=== PATIENT | female | born 1960 | race Caucasian/White ===

== ENCOUNTER → 2016-06-03 | Outpatient (CLI) | payer OTHER ==
--- NOTE | 2016-06-03 16:40 | KCIC ---
PROCEDURE MR of the left wrist and MR of the left hand HISTORY Swelling and tenderness. 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 TECHNIQUE Standard multiplanar sequences are obtained separately through the wrist and through the hand. COMPARISON None FINDINGS Left wrist Surface markers located just anterior to the extensor tendons indicating an area of swelling. There is a fusiform soft tissue mass which may represent massive enlargement of median nerve. At the level of the radiocarpal joint, this measures 2.7 centimeters wide 1.7 cm AP. This occurs over a longitudinal length of about 8 centimeters. There is some interposed mild fatty signal particularly at the proximal and distal margins. 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 Note that this lesion can be associated with macrodactyly. A 2nd skin markers located posterior to the extensor carpi ulnaris tendon. The tendon is intact, but is subluxed medially at the level of the ulnar styloid. There is some motion degradation on the exam. The other extensor compartments appear intact. Flexor tendons appear intact. The triangular fibrocartilage, scapholunate ligament and lunotriquetral ligament demonstrate no evidence of acute tear. No significant joint effusion. No acute soft tissue edema or fluid collection. No bone lesion or acute fracture. There is evidence of primary osteoarthritis at the carpal joints, greatest at the triscaphe, and also severe at the 1st carpometacarpal joint. Note is made of ulnar minus. 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 Flexor and extensor tendons are intact. No significant joint effusion. No abnormal soft tissue fluid collection or edema. No acute fracture or aggressive bone destruction. Mild degenerative changes are noted about the hand, particularly at the 2nd and 3rd MCP joints IMPRESSION 1. 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 Note these can be associated with macrodactyly. 2. 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 3. Primary osteoarthritis. 4. Medial subluxation of the extensor carpi ulnaris tendon. Electronically signed by: Juan José Bennett MD (Jun 03, 2016 16:39:09)
== END | disposition home or self-care (01) ==
LOC: KCIC MRI 13:44
PROVIDERS: ATTEND Internal Medicine
DX: M79.642 Pain in left hand (principal); M25.532 Pain in left wrist; M19.032 Primary osteoarthritis, left wrist
CPT/HCPCS: 73218; 73221

== ENCOUNTER 2016-09-18 16:57 | Emergency (ER) | payer OTHER ==
[~2016-09-18] VITALS: Ht 172.7 cm; Wt 83.9 kg
[2016-09-18 17:20] VITALS: BP 128/79
[2016-09-18] MEDS ORDERED: MORPHINE SULFATE 10 MG/ML VIAL. IV ONE (18:00)
[2016-09-18] MEDS ORDERED: ONDANSETRON PF 4 MG/2 ML VIAL. IV ONE (18:00)
[2016-09-18] MEDS ORDERED: FAMOTIDINE 20 MG/2 ML VIAL IVP ONE (18:00)
[2016-09-18] MEDS ORDERED: DICYCLOMINE HCL 10 MG CAPSULE PO ONE (18:00)
[2016-09-18] MEDS ORDERED: IV NORMAL SALINE 1000ML BAG 1,000 ML IV ONE (18:00)
[2016-09-18 18:02] LABS: BILIRUBIN,URINE NEGATIVE (NEG); GLUCOSE,URINE NEGATIVE (NEG); NITRITE,URINE NEGATIVE (NEG); PROTEIN,URINE NEGATIVE (NEG-TRACE); UROBILINOGEN,URINE 0.2 mg/dL (0.2 mg/dL)
--- NOTE | 2016-09-18 18:11 | PHYS DOC ---
Past Medical History Past Medical History: Arthritis, IBS, Other Additional Past Medical Histor: L arm- congenital deformity, "equilibrium issues" , IBS, scoliosis Past Surgical History: Hysterectomy Additional Past Surgical Histo: L hand surgery Alcohol Use: None Drug Use: None Adult General Chief Complaint Chief Complaint: DIARRHEA HPI HPI Patient is a 55 year old female with history of irritable bowel syndrome who presents today with diarrhea and generalized abdominal pain that began today at 10 AM. Patient denies any fever. She is complaining of chills. Patient denies any vomiting. Denies any bloody stools. Review of Systems Review of Systems Constitutional:see HPI Eyes: Denies change in visual acuity, redness, or eye pain [] HENT: Denies nasal congestion or sore throat [] Respiratory: Denies cough or shortness of breath [] Cardiovascular: No additional information not addressed in HPI [] GI: abdominal pain, and diarrhea [] : Denies dysuria or hematuria [] Musculoskeletal: Denies back pain or joint pain [] Integument: Denies rash or skin lesions [] Neurologic: Denies headache, focal weakness or sensory changes [] Endocrine: Denies polyuria or polydipsia [] Current Medications Current Medications Current Medications Medications (Trade) Dose Ordered Sig/Jeanna Start Time Stop Time Status Last Admin Dose Admin Dicyclomine HCl (Bentyl) 20 mg 1X ONCE 09/18/16 18:00 09/18/16 18:01 DC Famotidine (Pepcid) 20 mg 1X ONCE 09/18/16 18:00 09/18/16 18:01 DC 09/18/16 18:12 20 MG Info (Do NOT chart on this entry -- for MONITORING) 1 each PRN DAILY PRN 09/18/16 19:15 09/20/16 19:14 Iohexol (Omnipaque 300 Mg/ml) 75 ml 1X ONCE 09/18/16 19:30 09/18/16 19:31 DC 09/18/16 19:22 75 ML Morphine Sulfate 5 mg 1X ONCE 09/18/16 18:00 09/18/16 18:01 DC 09/18/16 18:14 5 MG Ondansetron HCl (Zofran) 4 mg 1X ONCE 09/18/16 18:00 09/18/16 18:01 DC 09/18/16 18:13 4 MG Sodium Chloride (Iv Sodium Chloride 0.9% 1000ml Bag) 1,000 ml @ 1,000 mls/hr 1X ONCE 09/18/16 18:00 09/18/16 18:59 DC 09/18/16 18:14 1,000 MLS/HR Allergies Allergies Allergies Coded Allergies Type Severity Reaction Last Updated Verified Penicillins Allergy Severe 09/18/16 Yes Quinolones Allergy Severe 09/18/16 Yes ampicillin Allergy Severe 09/18/16 Yes erythromycin base Allergy Severe 09/18/16 Yes levofloxacin Allergy Severe 09/18/16 Yes Physical Exam Physical Exam Constitutional: Well developed, well nourished, no acute distress, non-toxic appearance. [] HENT: Normocephalic, atraumatic, bilateral external ears normal, oropharynx moist, no oral exudates, nose normal. [] Eyes: PERRLA, EOMI, conjunctiva normal, no discharge. [] Neck: Normal range of motion, no tenderness, supple, no stridor. [] Cardiovascular:Heart rate regular rhythm, no murmur [] Lungs & Thorax: Bilateral breath sounds clear to auscultation [] Abdomen: Rounded abdomen. Bowel sounds normal, soft, diffuse tenderness throughout the abdomen, no masses, no pulsatile masses. [] Skin: Warm, dry, no erythema, no rash. [] Back: No tenderness, no CVA tenderness. [] Extremities: No tenderness, no cyanosis, no clubbing, ROM intact, no edema. [] Neurologic: Alert and oriented X 3, normal motor function, normal sensory function, no focal deficits noted. [] Psychologic: Affect normal, judgement normal, mood normal. [] Current Patient Data Vital Signs Vital Signs Date Time Temp Pulse Resp B/P Pulse Ox O2 Delivery O2 Flow Rate FiO2 09/18/16 18:14 Room Air 09/18/16 17:20 98.1 76 22 128/79 97 98.1 Lab Values Laboratory Tests Test 09/18/16 17:55 09/18/16 18:05 Urine Collection Type Unknown Urine Color Yellow Urine Clarity Clear Urine pH 5.0 Urine Specific [place] 1.025 Urine Protein Negativemg/dL (NEG-TRACE) Urine Glucose (UA) Negativemg/dL (NEG) Urine Ketones (Stick) 15mg/dL (NEG) Urine Blood Trace (NEG) Urine Nitrite Negative (NEG) Urine Bilirubin Negative (NEG) Urine Urobilinogen Dipstick 0.2mg/dL (0.2 mg/dL) Urine Leukocyte Esterase Small (NEG) Urine RBC Rare/HPF (0-2) Urine WBC 1-4/HPF (0-4) Urine Squamous Epithelial Cells Many/LPF Urine Bacteria Few/HPF (0-FEW) Urine Mucus Marked/LPF White Blood Count 12.6x10^3/uL (4.0-11.0) H Red Blood Count 5.32x10^6/uL (3.50-5.40) Hemoglobin 14.3g/dL (12.0-15.5) Hematocrit 42.7% (36.0-47.0) Mean Corpuscular Volume 80fL (79-100) Mean Corpuscular Hemoglobin 27pg (25-35) Mean Corpuscular Hemoglobin Concent 34g/dL (31-37) Red Cell Distribution Width 13.9% (11.5-14.5) Platelet Count 222x10^3/uL (140-400) Neutrophils (%) (Auto) 95% (31-73) H Lymphocytes (%) (Auto) 3% (24-48) L Monocytes (%) (Auto) 2% (0-9) Eosinophils (%) (Auto) 0% (0-3) Basophils (%) (Auto) 0% (0-3) Neutrophils # (Auto) 11.9x10^3uL (1.8-7.7) H Lymphocytes # (Auto) 0.4x10^3/uL (1.0-4.8) L Monocytes # (Auto) 0.3x10^3/uL (0.0-1.1) Eosinophils # (Auto) 0.0x10^3/uL (0.0-0.7) Basophils # (Auto) 0.0x10^3/uL (0.0-0.2) Segmented Neutrophils % 85% (35-66) H Band Neutrophils % 8% (0-9) Lymphocytes % 6% (24-48) L Monocytes % 1% (0-10) Platelet Estimate Adequate (ADEQUATE) Sodium Level 139mmol/L (136-145) Potassium Level 3.3mmol/L (3.5-5.1) L Chloride Level 102mmol/L (98-107) Carbon Dioxide Level 25mmol/L (21-32) Anion Gap 12 (6-14) Blood Urea Nitrogen 16mg/dL (7-20) Creatinine 0.9mg/dL (0.6-1.0) Estimated GFR (Cockcroft-Gault) 65.2 BUN/Creatinine Ratio 18 (6-20) Glucose Level 108mg/dL (70-99) H Calcium Level 9.1mg/dL (8.5-10.1) Total Bilirubin 0.5mg/dL (0.2-1.0) Aspartate Amino Transferase (AST) 17U/L (15-37) Alanine Aminotransferase (ALT) 24U/L (14-59) Alkaline Phosphatase 109U/L (46-116) Total Protein 7.6g/dL (6.4-8.2) Albumin 4.1g/dL (3.4-5.0) Albumin/Globulin Ratio 1.2 (1.0-1.7) Lipase 106U/L (73-393) Laboratory Tests 09/18/16 18:05 Laboratory Tests 09/18/16 18:05 EKG EKG [] Radiology/Procedures Radiology/Procedures []PROCEDURE: CT ABD PELV W/ IV CONTRST ONLY Examination: CT of the abdomen pelvis with IV contrast. HISTORY Diarrhea, abdominal pain. COMPARISON None available. TECHNIQUE Axial CT images of the abdomen and pelvis was performed with IV contrast. Coronal and sagittal reformats were performed. Exposure: One or more of the following dose reduction technique were utilized for this examination: 1. Automated exposure control. 2.Adjustment of MA and /or KV according to patient size. 3. Use of iterative reconstruction technique. FINDINGS Mild right lung base airspace opacity likely atelectasis or infiltrate. No evidence of free air identified in the abdomen. The visualized liver demonstrates tiny 3 millimeter hypodensity in the left lobe of the liver and in the right lobe of the liver are too small to characterize probably cysts. Mildly distended gallbladder. The visualized spleen, adrenals grossly appears unremarkable. The bilateral kidneys enhance symmetrically. The visualized pancreas grossly appears unremarkable. The small bowel is nondilated. The appendix is normal. Fluid is identified in the lumen of the colon throughout with some mild enhancement of the colon. Urinary bladder is minimally distended. Mild aortic atherosclerosis. Mild degenerative changes thoracolumbar spine exaggerated lumbar lordosis lumbar levoscoliosis. IMPRESSION - Small amount of fluid identified throughout the colon with minimal enhancement likely secondary to diarrhea or mild colitis. - Subcentimeter cystic structures identified in the liver are too small to characterize probably cysts. - Minimal right lung base airspace opacity likely atelectasis or infiltrate. Electronically signed by: Andrea Jeff (Sep 18, 2016 19:36:22) DICTATED and SIGNED BY: ANDREA JEFF MD DATE: 09/18/161935 CC: JERAMY RILEY APRN; NON,STAFF; UNKNOWN PCP NAME ~ Course & Med Decision Making Course & Med Decision Making Pertinent Labs and Imaging studies reviewed. (See chart for details) Patient is in the ED with generalized abdominal pain and diarrhea that began today. She has history of IBS. CBC with a WBC of 12.6, CMP with potassium of 3.3 , urine analysis appears contaminated. CT of the abdomen and pelvic was noted for colitis. Patient was given 1 L of IV fluid Zofran and famotidine and morphine in the ED. She has very good relief of her pain. She has not had any vomiting or diarrhea in the ED. She is allergic to multiple antibiotics Including quinolones, penicillins, erythromycin, she states she can not take any antibiotics that ends in mycin due to throat swelling She was discharged with Flagyl, Bactrim. F/u with PCP in course of the week Ishmael Disclaimer Ishmael Disclaimer This electronic medical record was generated, in whole or in part, using a voice recognition dictation system. Departure Departure Impression: Primary Impression: Colitis Disposition: 01 HOME, SELF-CARE Condition: STABLE Referrals: NO PCP (PCP) TOYA GONZALEZ MD follow up with your doctor and the GI doctor in the couse of this week Patient Instructions: Colitis Additional Instructions: You have colitis Please complete your antibiotics Follow up with your doctor in the course of this week come back to the Ed if symptoms worsen. Scripts Dicyclomine Hcl 20 Mg Tablet1 Tab PO TID #30 TAB Ref 1 Prov:JERAMY RILEY APRN 09/18/16 Ondansetron (Zofran Odt)4 Mg Tab.rapdis1 Tab SL Q8HRS #15 TAB Prov:JERAMY RILEY APRN 09/18/16 Sulfamethoxazole/Trimethoprim (Bactrim Ds Tablet)1 Each Tablet1 Tab PO BID #14 TAB Prov:JERAMY RILEY APRN 09/18/16 Metronidazole (Flagyl)500 Mg [id number] Mg PO TID #21 TAB Prov:JERAMY RILEY APRN 09/18/16 JERAMY RILEY APRN Sep 18, 2016 18:11
[2016-09-18 18:15] LABS: RBC,URINE RARE /HPF (0-2)
[2016-09-18 18:15] LABS: BASO % 0 % (0-3); EOS % 0 % (0-3); HEMATOCRIT 42.7 % (36.0-47.0); HEMOGLOBIN 14.3 g/dL (12.0-15.5); LYMPH # 0.4 x10^3/uL (1.0-4.8); LYMPH % 3 % (24-48); MEAN CORPUSCULAR HEMOGLOBIN 27 pg (25-35); MEAN CORPUSCULAR HGB CONC 34 g/dL (31-37); MEAN CORPUSCULAR VOLUME 80 fL (79-100); MONO % 2 % (0-9); NEUT % 95 % (31-73); PLATELET COUNT 222 x10^3/uL (140-400); RED BLOOD COUNT 5.32 x10^6/uL (3.50-5.40); RED CELL DISTRIBUTION WIDTH 13.9 % (11.5-14.5); WHITE BLOOD COUNT 12.6 x10^3/uL (4.0-11.0)
[2016-09-18 18:16] LABS: BACTERIA,URINE FEW /HPF (0-FEW); SQUAMOUS EPITHELIAL CELL,UR MANY /LPF
[2016-09-18 18:30] LABS: CALCIUM 9.1 mg/dL (8.5-10.1); CREATININE 0.9 mg/dL (0.6-1.0); GFR 65.2; POTASSIUM 3.3 mmol/L (3.5-5.1)
[2016-09-18 18:36] LABS: ALBUMIN 4.1 g/dL (3.4-5.0); ALBUMIN/GLOBULIN RATIO 1.2 (1.0-1.7); TOTAL BILIRUBIN 0.5 mg/dL (0.2-1.0); TOTAL PROTEIN 7.6 g/dL (6.4-8.2)
[2016-09-18 18:40] LABS: PLT ESTIMATE ADEQUATE (ADEQUATE)
[2016-09-18] MEDS ORDERED: CONTRAST GIVEN MC PRN (19:15)
[2016-09-18] MEDS ORDERED: IOHEXOL 300 MG/ML 75 ML VIAL IV ONE (19:30)
--- NOTE | 2016-09-18 19:37 | RAD ---
Examination: CT of the abdomen pelvis with IV contrast. HISTORY Diarrhea, abdominal pain. COMPARISON None available. TECHNIQUE Axial CT images of the abdomen and pelvis was performed with IV contrast. Coronal and sagittal reformats were performed. Exposure: One or more of the following dose reduction technique were utilized for this examination: 1. Automated exposure control. 2.Adjustment of MA and /or KV according to patient size. 3. Use of iterative reconstruction technique. FINDINGS Mild right lung base airspace opacity likely atelectasis or infiltrate. No evidence of free air identified in the abdomen. The visualized liver demonstrates tiny 3 millimeter hypodensity in the left lobe of the liver and in the right lobe of the liver are too small to characterize probably cysts. Mildly distended gallbladder. The visualized spleen, adrenals grossly appears unremarkable. The bilateral kidneys enhance symmetrically. The visualized pancreas grossly appears unremarkable. The small bowel is nondilated. The appendix is normal. Fluid is identified in the lumen of the colon throughout with some mild enhancement of the colon. Urinary bladder is minimally distended. Mild aortic atherosclerosis. Mild degenerative changes thoracolumbar spine exaggerated lumbar lordosis lumbar levoscoliosis. IMPRESSION - Small amount of fluid identified throughout the colon with minimal enhancement likely secondary to diarrhea or mild colitis. - Subcentimeter cystic structures identified in the liver are too small to characterize probably cysts. - Minimal right lung base airspace opacity likely atelectasis or infiltrate. Electronically signed by: Andrea Jeff (Sep 18, 2016 19:36:22)
[2016-09-18] MEDS ORDERED: DICY20TA3 PO (20:08)
[2016-09-18] MEDS ORDERED: SULF1TAB24 PO (20:08)
[2016-09-18] MEDS ORDERED: METR500T PO (20:08)
[2016-09-18] MEDS ORDERED: ONDA4TAB10 SL (20:08)
== END 2016-09-18 20:13 | disposition home or self-care (01) ==
LOC: ER 16:57
DX: K52.9 Noninfective gastroenteritis and colitis, unspecified (principal); M19.90 Unspecified osteoarthritis, unspecified site; R19.7 Diarrhea, unspecified; M41.9 Scoliosis, unspecified; Z88.0 Allergy status to penicillin; Z90.710 Acquired absence of both cervix and uterus; Z88.1 Allergy status to other antibiotic agents
CPT/HCPCS: 36415; 74177; 80053; 81001; 83690; 85007; 85027; 96361; 96374; 96375; 99285; J2270; J2405; J7030; Q9967; S0028

== ENCOUNTER → 2017-11-16 | Outpatient (CLI) | payer OTHER | END | disposition home or self-care (01) | LOC: KCIC MRI 14:30 | DX: M19.042 Primary osteoarthritis, left hand (principal); M25.442 Effusion, left hand; R60.0 Localized edema | CPT/HCPCS: 73218 ==